=== PATIENT | female | born 1985 | race Two or more races ===

== ENCOUNTER → 2020-01-08 09:28 | Outpatient (BNVA) | payer OTHER, SELFPAY | PROVIDERS: PCP Nurse Practitioner Family; Visit Provider Physician Assistant | DX: Z76.89 Persons encountering health services in other specified circumstances (principal) ==

== ENCOUNTER → 2020-01-11 08:13 | Outpatient (BNVA) | payer OTHER, SELFPAY | PROVIDERS: PCP Nurse Practitioner Family; Referring Provider Nurse Practitioner Family; Visit Provider Surgery | DX: Z76.89 Persons encountering health services in other specified circumstances (principal) ==

== ENCOUNTER → 2020-02-03 07:49 | Outpatient (BNVA) | payer OTHER, SELFPAY | PROVIDERS: PCP Nurse Practitioner Family; Referring Provider Nurse Practitioner Family; Visit Provider Surgery | DX: Z76.89 Persons encountering health services in other specified circumstances (principal) ==

== ENCOUNTER 2020-02-04 08:45 | Outpatient (REF) | payer OTHER, SELFPAY ==
--- NOTE | 2020-02-04 08:50 | US_ITS ---
EXAMINATION: US COMPLETE ABDOMEN WITH LIVER ELASTOGRAPHY CLINICAL INFORMATION: Moderate to severe obesity due to excess calories COMPARISON: None. TECHNIQUE: Real-time imaging of the abdominal viscera. Noninvasive ultrasound liver fibrosis assessment is performed using Ulises ElastPQ point quantification shear wave elastography (pSWE) with a 5 MHz transducer. Multiple elastography samples are obtained. FINDINGS: PANCREAS: The tail of the pancreas is obscured by overlying gas The visualized pancreatic head and body are normal in appearance. ABDOMINAL AORTA: The proximal, middle, and distal aortic segments are normal in caliber. INFERIOR VENA CAVA: Visualized portions are normal. LIVER:The liver demonstrates normal size, contour and diffuse increased echogenicity. There are areas of focal fatty sparing. No focal lesion or intrahepatic biliary duct dilatation. The right lobe measures 18.2 cm in length. The left lobe measures 13.2 cm in length. There is normal hepatopedal flow seen in the portal vein on Doppler exam. Shear wave elastography provides a median stiffness of 1.52 m/s (reference: normal median stiffness is 0.81 - 1.22 m/s). The IQR/median stiffness to assess sampling precision is 0.24 (reference: optimal IQR/median stiffness is under 0.3). GALLBLADDER: Normal. The gallbladder is physiologically distended without evidence of stones, sludge, polyps, wall thickening or pericholecystic fluid. COMMON BILE DUCT: Normal in caliber measuring 0.3 cm in diameter. RIGHT KIDNEY: Normal. No hydronephrosis. No renal calculi or focal parenchymal lesions. The kidney measures 11.4 cm in maximum dimension. LEFT KIDNEY: Normal. No hydronephrosis. No renal calculi or focal parenchymal lesions. The kidney measures 12.3 cm in maximum dimension. SPLEEN: Normal. The spleen measures 11.0 cm in maximum dimension. FREE FLUID: None. US/US abdomen comp w elastography IMPRESSION: 1. Hepatic steatosis with areas of focal fatty sparing. Rest of the abdominal ultrasound is unremarkable. 2. Elastography: [id number] fibrosis, score F2 - F3.
--- NOTE | 2020-02-04 09:18 | FL_ITS ---
EXAMINATION: XR GI SERIES CLINICAL INFORMATION: Morbid (severe) obesity due to excess calories. COMPARISON: None TECHNIQUE: Routine upper GI air-contrast study was performed in upright and lying position. FINDINGS: Following oral administration of thick barium and effervescent granules, there is normal propagation of bolus from the oral cavity through the pharynx, esophagus, into stomach. There is a prominent cricoesophageal sphincter with no obstruction. On placing patient supine and prone lying, the course, caliber and peristalsis of the stomach, duodenal bulb and the sweep is normal. No gastroesophageal reflux or hiatal hernia seen. The mucosal pattern of the stomach and the duodenum is normal. FLUOROSCOPY TIME: 1.8 minutes DOSE AREA PRODUCT: 106 uGy-m2 (microgray-meter squared) FL/FL upper GI series IMPRESSION: Unremarkable upper GI air-contrast study.
--- NOTE | 2020-02-04 09:18 | XR_ITS ---
EXAMINATION: XR CHEST CLINICAL INFORMATION: Morbid obesity. COMPARISON: None TECHNIQUE: 2 views of the chest were obtained. FINDINGS: Lungs are well-inflated and clear. Trachea is midline in position. No interstitial disease, consolidation or mass. No pleural effusion or pneumothorax. Cardiac silhouette and pulmonary vessels are normal in size. The mediastinum and shadi have normal contour. Diffuse soft tissue prominence of the chest wall in this morbidly obese patient. The visualized bones, and upper abdomen, are unremarkable. XR/XR chest 2V IMPRESSION: Lungs are normal. No acute cardiopulmonary abnormality.
== END 2020-02-04 08:46 | disposition home or self-care (01) ==
LOC: HO.US 08:45
PROVIDERS: Visit Provider Surgery
DX: Z01.818 Encounter for other preprocedural examination (principal); E66.01 Morbid (severe) obesity due to excess calories; K21.9 Gastro-esophageal reflux disease without esophagitis; G47.10 Hypersomnia, unspecified; G47.19 Other hypersomnia
CPT/HCPCS: 71046; 74240; 76705; 76981

== ENCOUNTER 2020-02-05 08:02 | Outpatient (REF) | payer OTHER, SELFPAY ==
[2020-02-08 09:13] LABS: H Pylori Breath Test NOT DETECTED (NOT DETECTED)
== END 2020-02-05 08:03 | disposition home or self-care (01) ==
LOC: HO.LNP 08:02
PROVIDERS: PCP Nurse Practitioner Family; Referring Provider Nurse Practitioner Family; Visit Provider Physician Assistant
DX: E66.01 Morbid (severe) obesity due to excess calories (principal); K21.9 Gastro-esophageal reflux disease without esophagitis; G47.10 Hypersomnia, unspecified; Z11.0 Encounter for screening for intestinal infectious diseases
CPT/HCPCS: 83013; 99211

== ENCOUNTER → 2020-02-10 08:23 | Outpatient (BNVA) | payer OTHER, SELFPAY | PROVIDERS: PCP Nurse Practitioner Family; Referring Provider Nurse Practitioner Family; Visit Provider Dietitian, Registered | DX: Z76.89 Persons encountering health services in other specified circumstances (principal) ==

== ENCOUNTER → 2020-02-24 08:06 | Outpatient (BNVA) | payer OTHER, SELFPAY | PROVIDERS: PCP Nurse Practitioner Family; Visit Provider Dietitian, Registered | DX: Z76.89 Persons encountering health services in other specified circumstances (principal) ==

== ENCOUNTER → 2020-03-18 08:25 | Outpatient (BNVA) | payer OTHER, SELFPAY | PROVIDERS: PCP Nurse Practitioner Family; Visit Provider Dietitian, Registered ==

== ENCOUNTER → 2020-03-25 08:17 | Outpatient (BNVA) | payer OTHER, SELFPAY | PROVIDERS: PCP Nurse Practitioner Family; Visit Provider Dietitian, Registered ==

== ENCOUNTER → 2020-04-20 08:14 | Outpatient (BNVA) | payer OTHER, SELFPAY | PROVIDERS: PCP Nurse Practitioner Family; Visit Provider Physician Assistant ==

== ENCOUNTER → 2020-05-06 07:57 | Outpatient (BNVA) | payer OTHER, SELFPAY | PROVIDERS: PCP Nurse Practitioner Family; Visit Provider Surgery ==

== ENCOUNTER → 2022-03-01 14:50 | Outpatient (BNVA) | payer OTHER, SELFPAY | PROVIDERS: PCP Nurse Practitioner Family; Visit Provider Physician Assistant Surgical | DX: Z13.89 Encounter for screening for other disorder (principal) ==